=== PATIENT | male | born 1985 | race African-American/Black ===

== ENCOUNTER 2017-10-31 09:15 | Emergency (ER) | payer MEDICAID ==
[~2017-10-31] VITALS: Ht 182.9 cm; Wt 76.0 kg
[2017-10-31] MEDS ORDERED: SODIUM CHLORIDE 0.9% 1,000 ML IV ONE (09:57)
[2017-10-31] MEDS ORDERED: MORPHINE SULFATE 4 MG/ML CPJ (NOT FOR IM USE) IV STA (09:57)
[2017-10-31] MEDS ORDERED: ONDANSETRON HCL 4MG/2ML VIAL IV STA (09:57)
[2017-10-31 10:39] LABS: EOSINOPHILS % 2.6 % (0.0-5.0); HEMATOCRIT. 43.8 % (42.0-52.0); HEMOGLOBIN. 14.8 g/dL (14.0-18.0); LYMPHOCYTES % 33.4 % (20.0-50.0); MEAN CORPUSCULAR HEMOGLOBIN 32.4 pg (28.0-32.0); MEAN PLATELET VOLUME 7.9 fl (7.4-10.4); MONOCYTES % 8.2 % (2.0-8.0); NEUTROPHILS % 54.8 % (40.0-76.0); PLATELET 136 x1000/uL (130-400); RED BLOOD CELL COUNT 4.57 mill/uL (4.7-6.1); RED CELL DISTRIBUTION WIDTH 13.6 % (11.6-14.6)
[2017-10-31 10:45] LABS: CLARITY URINE CLEAR (CLEAR); COLOR URINE YELLOW (YELLOW); KETONES URINE NEGATIVE (NEGATIVE); LEUKOCYTE ESTERASE URINE TRACE (NEGATIVE); NITRITE URINE NEGATIVE (NEGATIVE); OCCULT BLOOD URINE TRACE (NEGATIVE); PH URINE 6.5 (4.5-8.0); PROTEIN URINE NEGATIVE (NEGATIVE); SPECIFIC GRAVITY URINE 1.021 (1.005-1.030)
[2017-10-31 10:48] LABS: CHLORIDE 106 mEq/L (98-107)
[2017-10-31 11:23] LABS: *AMPHETAMINES SCREEN URINE NEGATIVE (NEGATIVE); *BARBITURATES SCREEN URINE NEGATIVE (NEGATIVE); *BENZODIAZEPINES SCREEN URINE NEGATIVE (NEGATIVE); *COCAINE SCREEN URINE NEGATIVE (NEGATIVE)
[2017-10-31 11:24] LABS: CANNABINOID URINE SCREEN PRESUMTIVE POSITIVE (NEGATIVE); METHADONE URINE SCREEN NEGATIVE (NEGATIVE); OPIATES URINE SCREEN NEGATIVE (NEGATIVE); PHENCYCLIDINE URINE SCREEN NEGATIVE (NEGATIVE)
[2017-10-31] MEDS ORDERED: AZITHROMYCIN 500 MG TABLET PO ONE (11:45)
[2017-10-31] MEDS ORDERED: LIDOCAINE HCL 1% 20ML VIAL (Pyxis) INJ INFIL ONE (11:45)
[2017-10-31] MEDS ORDERED: CEFTRIAXONE SODIUM 250 MG/VIAL IM ONE (11:45)
[2017-10-31 13:53] VITALS: BP 99/66
[2017-11-03 04:16] LABS: CHLAMYDIA TRACHOMATIS NAA Negative (Negative); NEISSERIA GONORRHOEAE NAA Negative (Negative)
== END 2017-10-31 13:54 | disposition home or self-care (01) ==
LOC: ER 09:42
DX: N20.0 Calculus of kidney (principal); J45.909 Unspecified asthma, uncomplicated; A64 Unspecified sexually transmitted disease; Z88.1 Allergy status to other antibiotic agents; Z90.49 Acquired absence of other specified parts of digestive tract
CPT/HCPCS: 36415; 74176; 80053; 80305; 81003; 83690; 85025; 87491; 87591; 96372; 96374; 96375; 99285; J0696; J2270; J2405; J3490; J7030

== ENCOUNTER 2021-11-29 23:10 | Emergency (ER) | payer MEDICAID, OTHER ==
[~2021-11-29] VITALS: Ht 185.4 cm; Wt 79.0 kg
[2021-11-29 23:32] VITALS: BP 99/57
== END 2021-11-30 07:39 | disposition left against medical advice (07) ==
LOC: ER 23:10
DX: Z53.21 Procedure and treatment not carried out due to patient leaving prior to being seen by health care provider (principal)
CPT/HCPCS: 99281

== ENCOUNTER 2022-08-11 07:34 | Emergency (ER) | payer OTHER ==
[~2022-08-11] VITALS: Ht 185.4 cm; Wt 78.0 kg
[2022-08-11 07:44] VITALS: BP 107/70
[2022-08-11 08:22] LABS: EOSINOPHILS % 3.5 % (0.0-5.0); HEMATOCRIT. 44.1 % (42.0-52.0); HEMOGLOBIN. 15.2 g/dL (14.0-18.0); LYMPHOCYTES % 31.8 % (20.0-50.0); MEAN CORPUSCULAR HEMOGLOBIN 32.8 pg (28.0-32.0); MEAN CORPUSCULAR VOLUME 95.3 fL (80.0-94.0); MEAN PLATELET VOLUME 8.1 fl (7.4-10.4); MONOCYTES % 8.3 % (2.0-8.0); NEUTROPHILS % 55.4 % (40.0-76.0); PLATELET 186 x1000/uL (130-400); RED BLOOD CELL COUNT 4.63 mill/uL (4.7-6.1); RED CELL DISTRIBUTION WIDTH 13.3 % (11.6-14.6)
[2022-08-11 08:29] LABS: CHLORIDE 108 mEq/L (98-107)
[2022-08-11] MEDS ORDERED: BENZ200C52 MT (09:27)
[2022-08-11] MEDS ORDERED: ALBU6.7H3 INH (09:27)
== END 2022-08-11 09:41 | disposition home or self-care (01) ==
LOC: ER 07:34
DX: R07.89 Other chest pain (principal); J45.909 Unspecified asthma, uncomplicated; Z98.890 Other specified postprocedural states; Z88.1 Allergy status to other antibiotic agents
CPT/HCPCS: 36415; 71045; 80053; 84484; 85025; 93005; 99285

== ENCOUNTER 2022-08-19 02:13 | Emergency (ER) | payer OTHER ==
[~2022-08-19] VITALS: Ht 185.4 cm; Wt 72.0 kg
[~2022-08-19 02:13] MED LIST: ALBU6.7H3 INH; BENZ200C52 MT
[2022-08-19 02:29] VITALS: BP 136/77
[2022-08-19] MEDS ORDERED: ALBUTEROL (0.083%) 2.5MG/3ML NEB HHN STA (02:34)
[2022-08-19 03:16] LABS: CHLORIDE 107 mEq/L (98-107)
[2022-08-19 03:23] LABS: BASOPHILS % 0.7 % (0.0-2.0); EOSINOPHILS % 4.7 % (0.0-5.0); HEMATOCRIT. 44.1 % (42.0-52.0); HEMOGLOBIN. 14.7 g/dL (14.0-18.0); LYMPHOCYTES % 39.1 % (20.0-50.0); MEAN CORPUSCULAR HEMOGLOBIN 31.8 pg (28.0-32.0); MEAN CORPUSCULAR VOLUME 95.4 fL (80.0-94.0); MEAN PLATELET VOLUME 8.8 fl (7.4-10.4); MONOCYTES % 8.7 % (2.0-8.0); NEUTROPHILS % 46.8 % (40.0-76.0); PLATELET 181 x1000/uL (130-400); RED BLOOD CELL COUNT 4.62 mill/uL (4.7-6.1)
[2022-08-19] MEDS ORDERED: P50 MT (03:44)
[2022-08-19] MEDS ORDERED: ALBU6.7H3 INH (03:44)
== END 2022-08-19 04:00 | disposition home or self-care (01) ==
LOC: ER 02:13
DX: R06.03 Acute respiratory distress (principal); J45.909 Unspecified asthma, uncomplicated; Z88.1 Allergy status to other antibiotic agents
CPT/HCPCS: 36415; 71045; 80053; 84484; 85025; 93005; 94640; 99285; Z7610

== ENCOUNTER 2025-02-21 09:18 | Emergency (ER) | payer OTHER ==
[~2025-02-21] VITALS: Ht 185.4 cm; Wt 77.0 kg
[~2025-02-21 09:18] MED LIST changes: +P50 MT
[2025-02-21 09:37] VITALS: TEMP 37
[2025-02-21 09:38] VITALS: O2SAT 94
[2025-02-21] MEDS: ALBUTEROL (0.083%) 2.5MG/3ML NEB HHN SCH (11:03)
[2025-02-21] MEDS: IPRATROPIUM BROMIDE (0.02%) 0.5MG/2.5ML NEB HHN SCH (11:04)
[2025-02-21 11:08] VITALS: PULSE 60; RESP 18; O2SAT 99
[2025-02-21 11:16] VITALS: PULSE 60; RESP 16; O2SAT 99
[2025-02-21 11:21] VITALS: PULSE 60; RESP 18; O2SAT 99
[2025-02-21 11:40] VITALS: BP 120/72; PULSE 62; RESP 18
[2025-02-21] MEDS: IBUPROFEN 600MG TABLET PO ONE (11:40)
[2025-02-21] MEDS: DEXAMETHASONE 4MG TABLET PO ONE (11:40)
== END 2025-02-21 14:38 | disposition home or self-care (01) ==
LOC: ER 09:50
DX: J45.901 Unspecified asthma with (acute) exacerbation (principal); B34.9 Viral infection, unspecified; Z88.1 Allergy status to other antibiotic agents
CPT/HCPCS: 71045; 94640; 93005; 99291; J8540; Z7610 ×3; 94664